=== PATIENT | female | born 1960 | race Caucasian/White ===

== ENCOUNTER 2016-12-03 22:34 | Emergency (ER) | payer OTHER ==
[~2016-12-03] VITALS: Ht 170.2 cm; Wt 102.9 kg
[~2016-12-03 22:34] MED LIST: AMPH30TA2 PO; ARIP2TAB3 PO; BIOTCAP2 PO; BUSP-8 PO; BUSP5TAB59 PO; CITA20TA4 PO; CLON1TAB3 PO; CYAN100020 PO; ERGO500037 PO; FERR325T5 PO; MAGN250T3 PO; MBC75 PO; METO1TAB66 PO; NARA2.5T2 PO; OXYB5TAB74 PO; OXYC-57 PO; OXYC1TAB3 PO; OXYSR/20 PO; POLY335019 PO; PRLSR20 PO; PYRI100T4 PO; SENNTAB23 PO; SM350 PO; VTMD1000 PO; ZOLP10TA PO
[2016-12-03 22:37] VITALS: TEMP 36.9; Ht 170.2 cm; Wt 102.9 kg
[2016-12-03 23:10] LABS: BASO % 0.3 %; BASO ABS # 0.02 K/uL (0-0.2); COMPLETE YES; EOS % 1.4 %; HEMATOCRIT 35.4 % (37-47); IG% 0.3 %; LYMPH % 23.2 %; LYMPH ABS # 1.53 K/uL (1.2-3.4); MEAN CELL VOLUME 84.9 fL (80-100); MEAN CORPUSCULAR HGB CONC 34.2 g/dl (32-36); MEAN PLATELET VOLUME 9.2 fL (7.4-10.4); MONO % 7.9 %; NEUT % 66.9 %; PLATELET COUNT 322 K/uL (130-400); RED BLOOD COUNT 4.17 M/uL (4.2-5.4); WHITE BLOOD COUNT 6.59 K/uL (4.8-10.8)
[2016-12-03 23:23] LABS: ALT/SGPT 12 U/L (12-78); BLOOD UREA NITROGEN 6 mg/dl (7-18); BUN/CREATININE RATIO 10.7 (10-20); CALCIUM 9.2 mg/dl (8.5-10.1); CARBON DIOXIDE 24 mmol/L (21-32); CHLORIDE 106 mmol/L (98-107); CREATININE 0.54 mg/dl (0.60-1.20); GLUCOSE 94 mg/dl (70-99); POTASSIUM 3.6 mmol/L (3.5-5.1); SODIUM 141 mmol/L (136-145)
[2016-12-03 23:27] LABS: ALB/GLOB RATIO 0.9 (0.9-2); ALKALINE PHOSPHATASE 98 U/L (45-117); AST/SGOT 8 U/L (15-37)
[2016-12-03 23:30] LABS: INR 0.9 (0.9-1.1); PARTIAL THROMBOPLASTIN RATIO 1.1
[2016-12-03] MEDS ORDERED: CITA40TA4 PO (23:43)
[2016-12-03] MEDS ORDERED: RISP1TAB68 PO (23:43)
[2016-12-03] MEDS ORDERED: MODA100T17 PO (23:43)
[2016-12-03] MEDS ORDERED: ACET-1256 PO (23:43)
[2016-12-03] MEDS ORDERED: MULT-513 PO (23:43)
[2016-12-03] MEDS ORDERED: PANT1TAB48 PO (23:43)
[2016-12-03] MEDS ORDERED: POLY335019 PO (23:43)
[2016-12-03] MEDS ORDERED: LEVE500T13 PO (23:43)
[2016-12-03] MEDS ORDERED: METO25TA56 PO (23:43)
[2016-12-03] MEDS ORDERED: SENN-65 PO (23:43)
[2016-12-03] MEDS ORDERED: MOML PO (23:43)
[2016-12-03] MEDS ORDERED: DOCU100C31 PO (23:43)
[2016-12-03] MEDS ORDERED: LIDO2SOL19 TOP (23:43)
[2016-12-03] MEDS ORDERED: ZINC20OI TD (23:43)
[2016-12-04 00:10] LABS: POINT OF CARE TROPONIN I < 0.030 ng/ml (0-0.045)
[2016-12-04] MEDS ORDERED: OPTIRAY 320 IV PRN (00:30)
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
[2016-12-04 02:39] VITALS: BP 110/70; PULSE 63; O2SAT 96
--- NOTE | 2016-12-04 07:01 | DIAGNOSTIC IMAGING REPORT ---
(CHEST FOR PE) ANGIO WITH CLINICAL HISTORY: 56 years-old Female presenting with left-sided chest pain, elevated D dimer. TECHNIQUE: Multidetector CT angiography of the chest was performed after the administration of intravenous contrast. 3-D volumetric and maximum intensity projection (MIP) images were subsequently reconstructed for review. IV contrast: 92 mL of Optiray 320. COMPARISON: Correlation made to chest x-ray performed the previous day. CT DOSE: The estimated cumulative dose is 539.21 mGy.cm. FINDINGS: Pulmonary vasculature: The study is slightly degraded by respiratory motion, limiting evaluation of subsegmental pulmonary arteries. No filling defect within the pulmonary arteries to suggest embolus. Main pulmonary artery not enlarged. No flattening of the interventricular septum. No intracardiac filling defect. Remaining chest: On soft tissue windows, normal thyroid and thoracic inlet. Scattered subcentimeter axillary and mediastinal lymph nodes, which are not pathologically enlarged. No hilar lymphadenopathy. Normal heart size. No pericardial effusion. Moderate to large left pleural effusion. A catheter descends from the base of the neck in the posterior soft tissues entering the left pleural space at the left posterior 5-6 intercostal region. The catheter terminates near the left apex posteriorly. Small right pleural effusion. The upper abdomen is normal. On lung windows, dependent consolidation in the left lower lobe with volume loss also seen to a lesser extent in the right lower lobe consistent with passive atelectasis. No other focal infiltrate. Airways patent. On bone windows, osseous structures normal. IMPRESSION: 1. No evidence of pulmonary embolus. 2. Moderate to large left and small right pleural effusions with associated passive atelectasis. Electronically signed by: Fernando Mane 12/04/2016 7:00 AM Dictated Date/Time: 12/04/2016 6:50 AM
--- NOTE | 2016-12-04 08:02 | DIAGNOSTIC IMAGING REPORT ---
CHEST ONE VIEW PORTABLE CLINICAL HISTORY: 56 years-old Female presenting with chest pain. TECHNIQUE: Portable upright AP view of the chest was obtained. COMPARISON: 08/26/2012. FINDINGS: Interval placement of a ventriculopleural catheter descending along the left cervical region and terminating in the left inferior pleural space. Cardiomediastinal silhouette normal. Left basilar opacity, likely effusion and atelectasis. Right lung clear. Osseous structures and upper abdomen normal. IMPRESSION: 1. Left basilar opacity likely represents expected pleural effusion and atelectasis in the setting of the ventriculopleural catheter. 2. No other evidence of acute cardiopulmonary disease. Electronically signed by: Fernando Mane 12/04/2016 8:00 AM Dictated Date/Time: 12/04/2016 7:48 AM
== END 2016-12-04 02:38 | disposition home or self-care (01) ==
LOC: EDBD 22:34 → C.EDC 22:35 → C.EDB 12-04 02:38
DX: J90 Pleural effusion, not elsewhere classified (principal); Z87.891 Personal history of nicotine dependence; Z79.899 Other long term (current) drug therapy; Z87.828 Personal history of other (healed) physical injury and trauma